=== PATIENT | female | born 1995 | race African-American/Black ===

== ENCOUNTER 2024-10-04 21:00 | Emergency (ER) | payer OTHER ==
[~2024-10-04] VITALS: Ht 170.2 cm; Wt 69.9 kg
[2024-10-04 21:45] VITALS: PULSE 71; RESP 18; TEMP 98.3
[2024-10-04] MEDS: METHYLPREDNISOLONE SOD SUCC 125 MG/2ML VIAL IM STA (22:04)
[2024-10-04] MEDS: KETOROLAC TROMETHAMINE 60 MG/2 ML VIAL IM STA (22:05)
[2024-10-04] MEDS ORDERED: ULTRAM 50MG50 MG PO (22:13)
[2024-10-04] MEDS ORDERED: PREDNISONE20 MG PO (22:13)
[2024-10-04 22:24] VITALS: BP 118/71; PULSE 62; RESP 18; TEMP 98.3; O2SAT 99
== END 2024-10-04 22:18 | disposition home or self-care (01) ==
LOC: ER 21:13
DX: M54.50 Low back pain, unspecified (principal); M51.369 Other intervertebral disc degeneration, lumbar region without mention of lumbar back pain or lower extremity pain; G89.29 Other chronic pain
CPT/HCPCS: 99283; J1885; J2919